=== PATIENT | female | born 1955 | race Caucasian/White ===

== ENCOUNTER → 2017-07-07 | Outpatient (CLI) | payer OTHER ==
--- NOTE | 2017-07-07 18:31 | Diagnostic Imaging Report ---
FOOT RIGHT COMPLETE, ANKLE 3 + VIEWS RIGHT - 3 views HISTORY: Pain status post fall. COMPARISON: None available. FINDINGS: Bones: There is a mildly displaced spiral fracture of the distal fibular metadiaphysis on the oblique view. Osseous alignment is within normal limits. Small well-corticated ossicles projected distal to the medial malleolus may reflect remote avulsion injury. Joints: Mild degenerative changes of the tibiotalar joint. Soft tissues: The soft tissues appear unremarkable. IMPRESSION: Mildly displaced spiral fracture of the distal metadiaphysis of the right fibula. Signed by: Dr. Gregoria Adames M.D. on 07/07/2017 6:28 PM
== END ==
LOC: RAD 16:57
PROVIDERS: ATTEND Internal Medicine
DX: M25.571 Pain in right ankle and joints of right foot (principal); M25.471 Effusion, right ankle

== ENCOUNTER → 2018-03-14 | Outpatient (CLI) | payer OTHER ==
--- NOTE | 2018-03-14 15:18 | Diagnostic Imaging Report ---
Exam: Lumbar spine AP lateral oblique History: Back pain Comparison: None. Findings: Posterior decompression and fusion of L5-S1 with transpedicular screws. Hardware intact without loosening. Degenerative disc disease at L2-L3 lower thoracic spine. Soft tissues unremarkable. Impression: Decompression and fusion L5-S1. No palpitation. Degenerative disc disease at L2-L3. Signed by: Dr. Santy Sosa M.D. on 03/14/2018 3:15 PM
== END ==
LOC: RAD 13:27
PROVIDERS: ATTEND Internal Medicine
DX: Z12.31 Encounter for screening mammogram for malignant neoplasm of breast (principal); M54.5 Low back pain
CPT/HCPCS: 72110; 77067